=== PATIENT | female | born 1940 | race Caucasian/White ===

== ENCOUNTER 2023-08-06 10:57 | Inpatient (IN) | payer OTHER ==
[~2023-08-06] VITALS: Ht 154.9 cm; Wt 59.9 kg
[~2023-08-06 10:57] MED LIST: ATORVASTATIN CA20 MG; DUI500 PO; ELIQUIS2.5 MG PO; HYDRODIURIL12.5 MG; LIPITOR20 MG; PERCOCET 5-3251 EACH PO; ST. JOSEPH ASPI81 M2; TOPROL XL100 M1; VALSARTAN-HCTZ1 EAC1 PO
[2023-08-06 12:03] LABS: HEMATOCRIT 41.2 % (36.0-45.00); HEMOGLOBIN 13.3 g/dL (12.0-15.00); MEAN CELL VOLUME 85.4 fL (80.00-100.00); MEAN CORPUSCULAR HEMOGLOBIN 27.5 pg (27.00-32.0); MEAN CORPUSCULAR HGB CONC 32.2 g/dl (32.0-36.0); PLATELET COUNT 246 K/uL (150-450); RED BLOOD COUNT 4.82 M/uL (4.00-6.00); RED CELL DISTRIBUTION WIDTH 14.4 % (11.5-14.5); URINE APPEARANCE Clear; URINE BILIRRUBIN Negative (NEGATIVE); URINE BLOOD Negative; URINE COLOR Yellow; URINE GLUCOSE Negative (NEGATIVE); URINE LEUKOCYTE Trace; URINE NITRATE Negative; URINE PROTEIN Negative (NEGATIVE); URINE UROBILINOGEN 0.2 E.U./dl
[2023-08-06 12:07] LABS: URINE BACTERIA 138.5 uL (0.0-1933); URINE EPITHELIAL CELLS 2.7 uL (0.0-38.8); URINE RBC 4.4 uL (0.0-20.8); URINE WBC 11.7 uL (0.0-23.2)
[2023-08-06] MEDS ORDERED: CHILDREN'S ASPI81 MG PO (12:26)
[2023-08-06 12:37] LABS: PARTIAL THROMBOPLASTIN TIME 22.9 SECONDS (22.0-34.0); PROTHROMBIN TIME 10.5 SECONDS (9.0-11.5)
[2023-08-06 12:41] LABS: ALBUMIN 3.6 gm/dL (3.4-5.0); BILIRUBIN TOTAL 0.53 mg/dL (0.3-1.2); CALCIUM 9.3 mg/dL (8.5-10.1); CREATININE SERUM 0.64 mg/dL (0.55-1.02); GFR 88.41; GLOBULINA 3.6 G/DL (2.4-3.5); POTASSIUM 5.05 mEq/L (3.5-5.1); TOTAL PROTEIN 7.2 gm/dL (6.4-8.2)
[2023-08-15 06:18] LABS: HEMATOCRIT 34.9 % (36.0-45.00); HEMOGLOBIN 11.9 g/dL (12.0-15.00); MEAN CELL VOLUME 82.6 fL (80.00-100.00); MEAN CORPUSCULAR HEMOGLOBIN 28.1 pg (27.00-32.0); PLATELET COUNT 185 K/uL (150-450); RED BLOOD COUNT 4.23 M/uL (4.00-6.00); RED CELL DISTRIBUTION WIDTH 14.3 % (11.5-14.5)
[2023-08-15] MEDS ORDERED: PERCOCET 5-3251 EACH PO (08:01)
[2023-08-15] MEDS ORDERED: ELIQUIS2.5 MG PO (08:01)
[2023-08-15] MEDS ORDERED: CEFADROXIL500 MG PO (08:01)
[2023-08-15 10:56] LABS: CALCIUM 7.9 mg/dL (8.5-10.1); CREATININE SERUM 0.86 mg/dL (0.55-1.02); GFR 62.86; MAGNESIUM 1.8 mg/dL (1.8-2.4); POTASSIUM 3.63 mEq/L (3.5-5.1)
[2023-08-16 06:13] LABS: HEMATOCRIT 33.9 % (36.0-45.00); HEMOGLOBIN 11.2 g/dL (12.0-15.00); MEAN CELL VOLUME 84.3 fL (80.00-100.00); MEAN CORPUSCULAR HEMOGLOBIN 27.9 pg (27.00-32.0); MEAN CORPUSCULAR HGB CONC 33.1 g/dl (32.0-36.0); PLATELET COUNT 173 K/uL (150-450); RED BLOOD COUNT 4.02 M/uL (4.00-6.00); RED CELL DISTRIBUTION WIDTH 13.8 % (11.5-14.5)
== END 2023-08-16 20:13 | DRG 470 ==
LOC: O/R 08-14 05:35 → SURH 08-14 07:00 → SURG 08-14 09:14 → SURH 08-14 10:49 → SURG 08-16 20:13
PROVIDERS: Internal Medicine; ADMIT Orthopaedic Surgery; ATTEND Orthopaedic Surgery
PROC: 0MNN0ZZ Release Right Knee Bursa and Ligament, Open Approach (ICD-10-PCS; 2023-08-14)
PROC: 0SRC0J9 Replacement of Right Knee Joint with Synthetic Substitute, Cemented, Open Approach (ICD-10-PCS; principal; 2023-08-14 07:00)
DX: M17.11 Unilateral primary osteoarthritis, right knee (principal); D62 Acute posthemorrhagic anemia; M22.11 Recurrent subluxation of patella, right knee; M81.0 Age-related osteoporosis without current pathological fracture; I10 Essential (primary) hypertension

== ENCOUNTER 2025-01-27 12:58 | Outpatient (CLI) | payer OTHER ==
[~2025-01-27 12:58] MED LIST changes: +CEFADROXIL500 MG PO; +CHILDREN'S ASPI81 MG PO
== END 2025-01-27 13:05 | disposition home or self-care (01) ==
LOC: SONOGRAMA 12:58
PROVIDERS: ATTEND Physical Medicine & Rehabilitation
DX: M25.512 Pain in left shoulder (principal)

== ENCOUNTER 2025-08-27 11:32 | Outpatient (CLI) | payer OTHER | END 2025-08-31 08:44 | disposition home or self-care (01) | LOC: MAMO-SONO 11:32 | PROVIDERS: ATTEND Internal Medicine | DX: N60.29 Fibroadenosis of unspecified breast (principal); Z12.31 Encounter for screening mammogram for malignant neoplasm of breast ==